=== PATIENT | female | born 1950 | race Caucasian/White ===

== ENCOUNTER → 2024-02-14 08:06 | Outpatient (REF) | payer MEDICARE, OTHER, SELFPAY | LOC: HWRAD 08:06 | PROVIDERS: ATTENDING PHYSICIAN Internal Medicine; REFERRING PHYSICIAN Internal Medicine Gastroenterology | DX: R60.9 Edema, unspecified (principal); K75.4 Autoimmune hepatitis; R10.9 Unspecified abdominal pain | CPT/HCPCS: 74176 ==

== ENCOUNTER → 2024-02-25 08:10 | Outpatient (REF) | payer MEDICARE, OTHER, SELFPAY | LOC: DHVS 08:10 | PROVIDERS: ATTENDING PHYSICIAN Surgery Vascular Surgery; FAMILY PHYSICIAN Internal Medicine | DX: I73.9 Peripheral vascular disease, unspecified (principal) | CPT/HCPCS: 93922; 93925 ==

== ENCOUNTER → 2025-05-01 10:00 | Outpatient (REF) | payer MEDICARE, OTHER, SELFPAY | LOC: RAD 10:00 | PROVIDERS: ATTENDING PHYSICIAN Internal Medicine Pulmonary Disease; FAMILY PHYSICIAN Internal Medicine | DX: J44.9 Chronic obstructive pulmonary disease, unspecified (principal) | CPT/HCPCS: 71250 ==

== ENCOUNTER → 2025-05-29 08:05 | Outpatient (REF) | payer MEDICARE, OTHER, SELFPAY | LOC: RAD 08:05 | PROVIDERS: ATTENDING PHYSICIAN Internal Medicine | DX: R51.9 Headache, unspecified (principal) | CPT/HCPCS: 70450 ==

== ENCOUNTER 2025-08-25 08:40 | Inpatient (IN) | payer MEDICARE, OTHER, SELFPAY ==
[2025-08-25] VITALS (49 sets, daily range): BP systolic 103–141; BP diastolic 57–111; BMI 16.1; BMI 16.3
[2025-08-25 07:15] LABS: Hematocrit 34.9 % (37.0-47.0); Hemoglobin 10.7 g/dL (12.0-16.0); Mean Corp Hgb Conc. 30.7 g/dL (33.0-37.0); Mean Corpuscular Volume 96.7 fL (81.0-99.0); Nucleated Red Blood Cells % 0 %; Platelet Count 272 10^3/uL (130-400); Red Cell Dist. Width 14.6 % (11.5-14.5)
--- NOTE | 2025-08-25 07:18 | ED TECH ---
A STEMI ALERT was called #[id number]# per @7:10 AM.
--- NOTE | 2025-08-25 07:28 | ED.GENMED ---
History of Present Illness
General
Chief Complaint: Breathing Problem
Time Seen by Provider: 08/25/25 07:09
History of Present Illness
History of Present Illness:
FOCUSED PAST MEDICAL HISTORY
- CHF, COPD related to lupus; patient denies CAD
REVIEW OF OLD RECORDS
- I reviewed old records�the patient was admitted with pelvic fracture 2020
Note:
CHIEF COMPLAINT(S)
Chest discomfort
HISTORY OF PRESENT ILLNESS
The patient is a 75-year-old female presenting with chest discomfort that began approximately 8 hours prior to arrival, around 11 PM last night. She describes the sensation as a pressure feeling, which she has not experienced before in this manner.
The patient reports a history of leg swelling recently and chronic purplish discoloration of the right foot over the past year, attributed to prior COVID-19 infection and vaccination. An examination revealed a slight wheeze on auscultation. The
patient denies any recent foot pain or abdominal pain but reports chronic foot pain. She appears somewhat uncomfortable during the examination.
MEDICATIONS
The patient is currently taking Entresto and Coreg. She is not on any anticoagulant medications such as apixaban (Eliquis).
REVIEW OF SYSTEMS
- Cardiovascular: Chest discomfort described as a pressure sensation, recent leg swelling.
- Respiratory: Wheeze present upon auscultation.
- Dermatological: Chronic purplish discoloration of the right foot.
PHYSICAL EXAM
General: Appears somewhat uncomfortable.
Skin: Purplish discoloration noted on the left greater than right feet, as described chronically by the patient. Unable to clearly palpate the left DP pulse
Respiratory: Scant wheeze on auscultation. Equally decreased breath sounds
Gastrointestinal: Abdomen is slightly prominent however it is soft and nontender
- HEENT: Moist oral mucosa
- Cardiovascular: No murmurs, normal heart rate, regular rhythm, No chest wall tenderness
- Neurologic: Excellent strength all extremities, no coordination deficits
- Psychiatric: Appropriate mental status, normal insight and judgement
- Extremities: Nontender, no edema, moves all extremities equally
PLAN
- Administered aspirin and Brilinta for chest discomfort.
- STEMI alert called�sent to Lead Assembler
DIFFERENTIAL DIAGNOSIS
The Differential Diagnosis includes, in no particular order and is not limited to:
1. Acute Coronary Syndrome
2. Congestive Heart Failure
3. Pulmonary Embolism
4. Aortic Dissection
5. Gastroesophageal Reflux Disease
6. Costochondritis
7. Anxiety or Panic Disorder
8. Chronic Obstructive Pulmonary Disease exacerbation
9. Peripheral Vascular Disease
10. COVID-19 related cardiac or pulmonary issues
Disposition:
SUMMARY OF ENCOUNTER
The patient, a 75-year-old female, presented to the emergency department with chest discomfort described as a pressure sensation, which began approximately 8 hours prior to arrival. An EKG was performed and was consistent with ST-Elevation
Myocardial Infarction (STEMI). As a result, discussions were held with an cutter woodwind reeds who agreed to proceed with cardiac catheterization.
EMERGENCY TREATMENTS ADMINISTERED
Aspirin and ticagrelor (Brilinta) were administered for antiplatelet therapy. The patient was also started on a heparin infusion and placed on a nitroglycerin drip to manage the chest pain.
MANAGEMENT OF THE PATIENTS CARE WAS DISCUSSED WITH
The case was discussed with an cutter woodwind reeds, who agreed on the need for urgent cardiac catheterization.
MEDICATION RECONCILIATION
- Aspirin administered
- Ticagrelor (Brilinta) administered
- Heparin infusion started
- Nitroglycerin drip started
MEDICAL DECISION MAKING
-Complexity of Data Reviewed: Chronic conditions affecting care, including recent leg swelling and prior COVID-19 history. Differential Diagnosis includes:
1. Acute Coronary Syndrome
2. Congestive Heart Failure
3. Pulmonary Embolism
4. Aortic Dissection
5. Gastroesophageal Reflux Disease
6. Costochondritis
7. Anxiety or Panic Disorder
8. Chronic Obstructive Pulmonary Disease exacerbation
9. Peripheral Vascular Disease
10. COVID-19 related cardiac or pulmonary issues
-Data:
Category 1
EKG was performed and independently interpreted, showing evidence of a STEMI.
Category 3
Discussion of management occurred with an cutter woodwind reeds, who agreed to take the patient to the clinical laboratory service teacher for further intervention.
DIAGNOSIS
1. ST-Elevation Myocardial Infarction (STEMI) - ICD-10: I21.3
RADIOLOGY
- Hyperinflated lungs, lack of lung markings in the periphery of the right consistent with apical pneumothorax
EKG
- Sinus 92 right bundle branch block is old but the ST elevation noted in V3 through V6 is new
LABS
- White count 3.5, hemoglobin 10.7, platelets normal, troponin 0.018 bicarb 14, BNP 7670
UPDATE
- Patient's EKG is concerning for STEMI with new ST elevation in V3 through V6
- Spoke to Dr. Granados who is taken to the Lead Assembler
- I ordered heparin, nitro, aspirin, Brilinta
- Chest x-ray obtained just prior to patient going upstairs and does suggest possibly of pneumothorax on the right side
- Attempted to contact radiology however they are not available yet
Past History
Past History
ED Past Medical History: CAD, Cancer (Breast, thyroid, ovarian), COPD (Emphysema), GERD, HTN, Hypercholesterolemia and Other (Lupus, Raynaud's)
ED Past Surgical History: Appendectomy, Gynecological (Hysterectomy) and Other (Partial thyroidectomy)
Social History
Tobacco: Former smoker
Living: with family
Phy Exam
Physical Exam
Physical Exam:
HPI
Scores
Heart Failure Risk
Heart Failure Risk Score: Not Applicable
Course
Orders/Labs/Results
Orders:
Orders
08/25/25 06:58
Electrocardiogram (*1) Urgent
Reason for Study: Other
Other Reason for Exam: Respiratory Distress
Cardiac Monitoring- Treatment ONCE
EKG- Treatment ONCE
IV Insert/Care/Rem.- Treatment PRN
O2 Therapy [RESP] Urgent
Titrate/Wean O2 to maintain O2 sat greater than (%): 93
Special Instructions: TO MAINTAIN CONTINUOUS O2 SATS >/= 93%
Pulse Ox/cont/shift [RESP] Urgent
Quantity: 1
Special Instructions: continuous pulse ox
08/25/25 07:09
Complete Blood Count/With Diff Urgent
Comprehensive Metabolic Panel Urgent
NT-proBNP Urgent
Troponin I Urgent
08/25/25 07:12
CR Chest Portable - 1 View Urgent
Comment:
Reason For Exam: STEMI
Reason Study Needs to be Portable: Unable to Transport
08/25/25 07:30
Nitroglycerin 100 mg/250 ml [Nitroglycerin Premix] 100 mg in 250 ml IV PER PROTOCOL
Initial dose in mcg/min, then titrate:: 10
Titrate to keep:: Chest Pain Free
Titrate by mcg/min:: 5 mcg/min, may increase by 10 mcg/min if dose > 20 mcg/min
Frequency of titrations (minutes):: every 3-5 minutes
Maximum dose in mcg/min:: 200
Begin to taper infusion when:: Remained at goal for 2hrs
Taper by mcg/min:: 5 mcg/min
Frequency of taper (minutes) if patient maintains goal:: 30
Taper to off?: Yes
If infusion off & no longer maintaining goal:: Contact Provider
08/25/25 07:47
Aspirin Chewable [Low Strength Aspirin] 324 mg .ROUTE .STK-MED ONE
Heparin 5,000 units .ROUTE .STK-MED ONE
Ticagrelor [Brilinta] 180 mg .ROUTE .STK-MED ONE
08/25/25 08:14
CXR Port [CR Chest Portable - 1 View] Stat
Comment:
Reason For Exam: pneumothorax
Reason Study Needs to be Portable: Unable to Transport
08/25/25 08:15
Admit Patient As Directed
Co-Sign Provider:
Level of Care: Inpatient admission
Assign to:: ICU
Physician / Group: hospitalist
Diagnosis: SOB
Reason for Hospitalization: SOB/Chest pain, possible PTX
Expected length of stay greater than two midnights?: Yes
ELOS- Estimated Length of Stay in days: 3
I certify the patient meets the requirements for IP care: Yes
Electrocardiogram (*1) Urgent
Reason for Study: Other
Other Reason for Exam: s/p intervention
Comment: dca
Activity As Directed
Activity Level: Out of Bed- Chair
Comment: bed/chair rest for 2 hours then out of bed ad momo
Lead Assembler Procedure As Directed
Cardiac Cath Procedure: percutaneous coronary intervention
Intake/ Output As Directed
Frequency: Per unit guidelines
Notify MD As Directed
Notify physician if: immediately for chest pain or bleeding from access site(s)
Radial Artery Hemostasis Method As Directed
Instructions:: 3 mL out at 2 hour posts placement of band
3 mL out at 2 1/2 hours post placement of band
3 mL out at 3 hours post placement of band
Off at 3 1/2 hours post placement of band
If any oozing or hemotoma occurs:: re-inflate band and call provider
Site Checks As Directed
Check access site for bleeding/hematoma: Yes
Comment: on arrival, Q15min x4, Q30min x2, Q1 hr x2, Q2 hr x2, Q4 hr or per
protocol
Vascular Checks As Directed
Location: distal to access site - pulse check
Frequency: Other
Comment: on arrival, Q15min x4, Q30min x2, Q1 hr x2, Q2 hr x2, Q4 hr or per protocol
Vital Signs As Directed
Frequency: Other
Additional Instructions:: on arrival, Q15min x4, Q30min x2, Q1 hr x2, Q2 hr x2, then Q4 hr or per unit
protocol
08/25/25 08:16
PRN Pain Medication Management As Directed
May give lesser potent ordered pain med per pt: Yes
preference::
Protocol:: Medication orders for pain may be administered in a
manner that supports deferring to patient preference
when the pt is:
- Requesting an ordered lesser potent pain medication.
Least to most potent pain medications are defined
as: acetaminophen < NSAID < tramadol < opioids
(morphine, oxycodone, hydromorphone).
- Requesting a lesser dose of the same medication IF
ORDERED.
- Requesting a less intrusive route of administration
if both routes are prescribed by the provider (PO <
IV).
08/25/25 08:19
DX Deep Vein Thrombosis Video Routine
08/25/25 08:20
Acetaminophen [Tylenol] 650 mg PO Q4HPRN PRN
08/25/25 08:23
High Flow Oxygen Therapy [O2 Therapy] [RESP] Urgent
High Flow Nasal Cannula FIO2%: 100
Titrate/Wean O2 to maintain O2 sat greater than (%): 95
Special Instructions: leave oxygen on until repeat CXR done, if no PTX ok to wean oxygen
08/25/25 Lunch
Cholesterol Lowering
At Your Request: Full Participation
Cholesterol Lowering: Sodium, 2 Gram
08/25/25 18:00
Atorvastatin [Lipitor] 40 mg PO QPM
08/25/25 20:00
Carvedilol [Coreg] 3.125 mg PO BID
08/26/25 06:00
Echo 2D MMode Color/Doppler IN AM
Reason for Study: post cath
Comment: dca
Echo 2D MMode Color/Doppler Routine
Reason for Study: OR
Comment: dca
Electrocardiogram (*1) IN AM
Reason for Study: Other
Other Reason for Exam: s/p intervention
Comment: dca
Basic Metabolic Panel IN AM
Cardiovascular Evaluation IN AM
Complete Blood Count/No Diff IN AM
08/26/25 08:00
Aspirin Chewable [Low Strength Aspirin] 81 mg PO DAILY
08/26/25 18:00
Enoxaparin Sodium [Lovenox] 30 mg SC QPM
Abnormal Lab Results
08/25/25 08/25/25
07:09 07:54
WBC 3.5 L 10^3/uL
(4.8-10.8)
RBC 3.61 L 10^6/uL
(4.20-5.40)
Hgb 10.7 L g/dL
(12.0-16.0)
Hct 34.9 L %
(37.0-47.0)
MCHC 30.7 L g/dL
(33.0-37.0)
RDW 14.6 H %
(11.5-14.5)
Absolute Lymphs (auto) 0.8 L 10^3/uL
(1.2-3.4)
Chloride 112 H mmol/L
(98-107)
Carbon Dioxide 14 L* mmol/L
(22-30)
BUN 27 H mg/dl
(7-17)
Glucose 114 H mg/dl
(70-99)
POC ACT Low Range 263 H Seconds
(116-155)
08/25/25 07:09
08/25/25 07:09
Vital Signs
Initial and Last Documented VS:
Initial Vital Signs
Temp Pulse Resp BP Pulse Ox
36.4 C 103 20 128/78 96
08/25/25 06:52 08/25/25 06:52 08/25/25 06:52 08/25/25 06:52 08/25/25 06:52
Last Documented Vital Signs
Temp Pulse Resp BP Pulse Ox
36.4 C 98 21 138/100 100
08/25/25 06:52 08/25/25 07:31 08/25/25 07:31 08/25/25 07:32 08/25/25 08:42
*Pulse Oximetry
SaO2: 96
Oxygen Mode of Delivery: Room air
Patient hypoxic: no
*Critical Care Note
Total Time (30-74mins, 75-104mins- exclusive of procedures): Not Applicable
ED Attending Note
-
Portions of this chart may have been created with voice recognition software.� Occasional wrong word or��sound alike� substitutions may have occurred due to the inherent limitations of voice recognition software.
Discharge Plan
Departure
Patient Disposition: Admit
Date of Disposition: 08/25/25
Time of Disposition: 07:27
Presentation/result/management discussed w/ accepting MD/DO: dr granados
Discharge Problem:
ST elevation (STEMI) myocardial infarction
Interventions
Interventions:
*General Assessment Last Done: 08/25/25 06:52
*Neglect/Abuse Screening Last Done: 08/25/25 06:52
*ED COVID-19 Vaccine History Last Done: 08/25/25 06:52
*ED Influenza Vaccine History Last Done: 08/25/25 06:52
[facility] Fall Risk Assessment Tool Last Done: 08/25/25 06:52
*Risk Screen - Suicide (C-SSRS) Last Done: 08/25/25 06:52
*Nursing Disposition Last Done: 08/25/25 07:50
ED- Cardiac Assessment Last Done: 08/25/25 07:51
ED- Pulmonary Assessment Last Done: 08/25/25 07:51
Discharge Date and Time
Discharge Date/Time: 08/25/25 07:52
[2025-08-25 07:39] LABS: ALT (SGPT) 26 U/L (0-35); AST (SGOT) 33 U/L (14-36); Albumin 4.3 g/dl (3.5-5.0); Alkaline Phosphatase 62 U/L (38-126); Blood Urea Nitrogen 27 mg/dl (7-17); Calcium 8.9 mg/dl (8.4-10.2); Carbon Dioxide 14 mmol/L (22-30); Chloride 112 mmol/L (98-107); Estimated Creatinine Clearance 37 ml/min; Glucose 114 mg/dl (70-99); Potassium 4.9 mmol/L (3.5-5.1); Sodium 139 mmol/L (135-145); Total Protein 6.8 g/dl (6.3-8.2); eGFR > 60.00
[2025-08-25 07:42] LABS: Troponin I 0.018 ng/ml
--- NOTE | 2025-08-25 07:59 | CON.CAR ---
Addendum entered and electronically signed by BECCA Tinajero 08/27/25 08:58:
Acute HFrEF treated with lasix during cath with elevated BNP
Addendum entered and electronically signed by Christie Longoria MD 08/25/25 15:08:
I saw and examined the patient.
The Superintendent Quarry's note was reviewed and I agree with the note.
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
followed by [facility]ology who presents with sudden onset shortness of breath and some chest discomfort starting around 11 PM last evening, eventually calling EMS around 5 or 6 in the morning found to have ST elevations in the lateral leads in
the setting of a right bundle branch block concerning for possible lateral HI for which the heart team was activated and patient was urgently brought up to the heart catheterization lab. There was some concern about a possible right apical
pneumothorax which we could not rule out however we had challenges getting a stat read from radiology and in the setting of ongoing chest discomfort/shortness of breath and ST changes decision was made to proceed with urgent heart catheterization
Vital signs and lab work reviewed. Patient was hemodynamically stable but tachycardic. On 2 L of oxygen. She was tachypneic, cachectic, frail at baseline, tachycardic, and mild respiratory distress, anxious, normal S1 and S2, no murmurs, rubs or
gallops, mildly elevated JVD, decreased breath sounds at bases, abdomen soft, nontender, nondistended with active bowel sounds, warm extremities without significant edema.
Heart catheterization: No obstructive coronary artery disease, LVEDP of 18 mmHg
Recommendations:
1. Post heart catheterization, extensive discussion was had with hospitalist as well as hardware installer given concerns for possible apical pneumothorax. Decision was made to support patient with 100% FiO2 via nonrebreather which we placed her on in
the Reverse Unit Operator itself. I expressed significant concerns in regards to patient going to the cath recovery area and instead we insisted on patient being transferred to an ICU bed with plan for repeat urgent portable x-ray. Upon discussion with
radiology, a large tension pneumothorax was noted on repeat imaging and while in the ICU patient underwent a emergent chest tube placement by hardware installer.
2. From a cardiac standpoint once patient is stable she will undergo an echocardiogram to assess biventricular function and rule out any significant valvular disease. We will try to obtain records from her sampler radioactive waste given concern/history of
what sounds like a nonischemic cardiomyopathy and additional workup has been underway per patient in regards to ruling out amyloid.
Updated in regards to all of the above.
Christie Longoria MD, [facility], [facility]
[id number]
Original Note:
Consultation
Consultation Request
Reason for Consultation: SOB
Medical History
-
Chief Complaint: SOB
History of Present Illness:
75 yo WF h/o SLE, COPD, HTN, HLD, Hypothyroidism, lacunar CVA, breast and ovarian cancer who developed SOB last night at 11pm with associated back pain. She took a shot of antonieta and fell asleep, this am she woke with worsening shortness of breath
and presented to ER. CXR done with possible Right PTX, EKG with some lateral NATALEE with RBBB and STEMI alert was activated. She was started on nitroglycerin drip, ASA, Brilinta and heparin given in ER. Cath with non obstructive CAD, will repeat CXR
and possibly place CT in IR if PTX. Her outpt cadiologist has been working her up for Amyloidosis for her cardiomyopathy with recent MRI, results unavailable.
Past Medical History
Past Medical History: Cancer (breast, ovarian), CHF (EF 35-40% by Echo 2023, mildly dilated AO), COPD (emphysema), CVA (lucunar), GERD (PUD), HTN, Hypercholesterolemia, Hypothyroidism, Valvular Disease and Other (SLE, cataracts, DVT/PE @38)
Past Surgical History: Appendectomy, Gynecological (IGNACIO, nilo oophorectomy, R mastectomy with breast implant ), Orthopedic (ORIF L) and Other (L thyroid lobectomy, hemicolectomy 2007, R mastectomy 2002)
Social History
Tobacco: Non-Smoker
Alcohol: None
Personal:
Living: With Family
Family History
Family History: Reviewed & Not Pertinent
Allergies / Home Medications
Allergy/AdvReac Type Severity Reaction Status Date / Time
pantoprazole (From Protonix) Allergy diarrhea Verified 08/25/25 06:51
Penicillins Allergy Rash Verified 08/25/25 06:51
Sulfa (Sulfonamide Allergy Hives Verified 08/25/25 06:51
Antibiotics)
florescent lights Allergy Rash Uncoded 08/25/25 06:51
normal saline solution Allergy excessive Uncoded 08/25/25 06:51
amts=fluid
over load.
smaller
amts ok
�Medication �Instructions �Recorded �Confirmed �Type
docusate sodium 100 mg capsule 200 mg PO HS Gastrointestinal issue 09/10/10 05/25/20 History
enalapril maleate 5 mg tablet 5 mg PO DAILY Blood pressure 09/10/10 05/25/20 History
esomeprazole magnesium 40 mg 20 mg PO BID Gastrointestinal issue 09/10/10 05/25/20 History
capsule,delayed release (Nexium)
fluticasone propionate 50 2 spray intranasal TID Allergies 09/10/10 05/25/20 History
mcg/actuation nasal
spray,suspension
loratadine-pseudoephedrine ER 10 1 ea PO DAILY Allergies 09/10/10 05/25/20 History
mg-240 mg tablet,extended
[id number] (Claritin-D 24 Hour)
polyethylene glycol 3350 17 17 gm PO BID Gastrointestinal issue 09/10/10 05/25/20 History
gram/dose oral powder
torsemide 20 mg tablet 20 mg PO DAILY Fluid 09/10/10 05/25/20 History
retention/Swelling
triamterene 50 mg capsule 50 mg PO DAILY Fluid 09/10/10 05/25/20 History
(Dyrenium) retention/Swelling
albuterol sulfate 90 mcg/actuation 2 puff inhalation R Q4HPRN PRN 05/25/20 05/25/20 History
aerosol inhaler wheezing
carboxymethylcellulose sodium 1 % 1 drops BOTH EYES TID Eye condition 05/25/20 05/25/20 History
eye gel in a dropperette
(TheraTears)
cholecalciferol (vitamin D3) 50 2,000 units PO DAILY Supplement 05/25/20 05/25/20 History
mcg (2,000 unit) tablet
cyanocobalamin (vitamin B-12) 1,000 mcg PO DAILY Supplement 05/25/20 05/25/20 History
1,000 mcg tablet
levothyroxine 100 mcg tablet 100 mcg PO DAILY Thyroid 05/25/20 05/25/20 History
liothyronine 5 mcg tablet (Cytomel) 5 mcg PO TID Thyroid 05/25/20 05/25/20 History
pyridoxine (vitamin B6) 100 mg 100 mg PO DAILY Supplement 05/25/20 05/25/20 History
tablet (Vitamin B-6)
triamcinolone acetonide 40 mg/mL 40 mg IJ Q2M Anti-inflammatory 05/25/20 05/25/20 History
suspension for injection (Kenalog)
umeclidinium 62.5 mcg-vilanterol 1 puff IH DAILYPRN PRN wheezing 05/25/20 05/25/20 History
25 mcg/actuation powdr for
inhalation (Anoro Ellipta)
vit C 250 mg-vit E 90 mg-zinc 40 1 ea PO BID Supplement 05/25/20 05/25/20 History
mg-copper 1 [id number]
capsule (PreserVision AREDS-2)
ascorbic acid (vitamin C) 250 mg 250 mg PO DAILY #30 tabs 05/27/20 Rx
tablet
aspirin 81 mg tablet,delayed 81 mg PO DAILY #30 tabs 05/27/20 Rx
release
atorvastatin 40 mg tablet 40 mg PO QPM #30 tabs 05/27/20 Rx
ferrous sulfate 325 mg (65 mg 325 mg PO DAILY #30 tabs 05/27/20 Rx
iron) tablet (FeroSul)
folic acid 400 mcg tablet 0.4 mg PO DAILY #30 tabs 05/27/20 Rx
oxycodone-acetaminophen 5 mg-325 2 tab PO QIDPRN PRN severe pain 05/28/20 Rx
mg tablet #10 tabs
potassium chloride 10 mEq 10 meq PO Supplement 05/28/20 History
tablet,extended release(part/cryst)
potassium chloride 20 mEq 20 BID Supplement 05/28/20 History
tablet,extended
release(part/cryst) (Klor-Con M)
Review of Systems
-
Respiratory: Cough and Trouble Breathing
Physical Exam
Vital Signs
Temp Pulse Resp BP Pulse Ox
97.6 F 98 21 138/100 96
08/25/25 06:52 08/25/25 07:31 08/25/25 07:31 08/25/25 07:32 08/25/25 07:38
Lab Results
08/25/25 07:09
08/25/25 07:09
Troponin I 0.018 ng/ml 08/25/25 07:09
[id number] Pept 7670 pg/ml 08/25/25 07:09
Physical Exam
General: Respiratory Distress (full exam deferred as being prepped and draped on cath table for emergent procedure)
Respiratory: Wheezes
Impression / Plan
-
Primary care physician: Marie Ruby MD
Primary sampler radioactive waste: Jorge Christian MD ([facility] [place])
Impression:
Shortness of breath
Right Pneumothorax on CXR
Lateral ST elevations on EKG, urgent cath today with non obstructive CAD
RBBB
chronic HFrEF 35-40%, undergoing w/u for Amyloid
SLE
COPD/Emphysema
HTN
Hyperlipidemia
Mild AR/TR and mildly dilated Aortic ascending aorta
Lacunar CVA
Breast cancer post R mastectomy 2002
Ovarian cancer post IGNACIO, nilo oophorectomy
Estephania thyroiditis post L thyroid lobectomy
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
GERD/PUD
IBS-C
underweight BMI 16
Plan:
presented to ER with worsening SOB/cough and scapular pain, EKG with lateral NATALEE, STEMI alert activated
CXR prior to arrival with PTX, official read was pending
cath with non obstructive CAD, admitted to ICU for repeat CXR, noted with Right tension PTX
CT being placed at bedside by Filer Helper, continue high flow oxygen
LVEDP not severely elevated at 18, she was given lasix 40mg iv during procedure for BNP >7000
monitor cr post cath, and electrolytes to keep K >4 and Mg >2
Check Echo today
serial troponin to peak
continue ASA/statin
wean nitro drip to off for BP management
CT management per primary service
f/u Dr. Christian in 2-4 weeks
06/09/2024 ECHO - LVEF 35-40%, moderate global HK, mild LA enlargement, Mild AR/TR, mildly dilated AAo 3.6cm
06/12/2024 NST - EF 44%, no ischemia, mild diffuse HK
Data Reviewed
-
Medical Tests (Nuc Med, Echo etc): Report Reviewed by me
Labs: Discussed with Physician
[2025-08-25 08:02] LABS: ACT-LR - POC 263 Seconds (116-155)
--- NOTE | 2025-08-25 08:47 | CON.INTV ---
Consultation
Consultation Request
Date/Time Consultation Requested: 08/25/2025
Date/Time Consultation Performed: 08/25/2025
Medical History
-
Chief Complaint: Chest pressure, shortness of breath
History of Present Illness:
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 Symptoms started about 7 to 8 hours prior to
presentation where she felt rather rapid onset of back pain with chest pressure and difficulty breathing. She tried to fall asleep and then woke up in the morning with worsening shortness of breath and presented to the emergency room. Initial EKG
was suggestive of ST elevation and patient was taken to Technical Assistant where no coronary artery disease was noted. Initial chest x-ray was concerning for possible pneumothorax however interpretation was limited by multiple lines, patient rotation as well
as ruptured breast implant noted on the right side. Post coronary angiogram, patient was transferred to ICU for concern of pneumothorax as underlying etiology for shortness of breath and chest pain. Medical Assistant Dermatology consultation was requested for
further input.
Patient was emergently evaluated in the ICU as soon as she arrived. A stat bedside [id number] ultrasound was performed which showed absence of lung sliding on the right hemithorax in the anterior and lateral region. Repeat chest x-ray was
performed which confirmed pneumothorax suggestive of tension physiology. A bedside chest tube was emergently placed with rapid improvement in patient's symptoms.
Past Medical History
Past Medical History: Cancer (breast, ovarian), CHF (EF 35-40% by Echo 2023, mildly dilated AO), COPD (emphysema), CVA (lucunar), GERD (PUD), HTN, Hypercholesterolemia, Hypothyroidism, Valvular Disease and Other (SLE, cataracts, DVT/PE @38)
Past Surgical History: Appendectomy, Gynecological (IGNACIO, nilo oophorectomy, R mastectomy with breast implant ), Orthopedic (ORIF L) and Other (L thyroid lobectomy, hemicolectomy 2007, R mastectomy 2002)
Social History
Tobacco: Non-Smoker
Alcohol: None
Personal:
Living: With Family
Family History
Family History: Reviewed & Not Pertinent
Allergies / Home Medications
Allergies
Allergy/AdvReac Type Severity Reaction Status Date / Time
pantoprazole (From Protonix) Allergy diarrhea Verified 08/25/25 06:51
Penicillins Allergy Rash Verified 08/25/25 06:51
Sulfa (Sulfonamide Allergy Hives Verified 08/25/25 06:51
Antibiotics)
florescent lights Allergy Rash Uncoded 08/25/25 06:51
normal saline solution Allergy excessive Uncoded 08/25/25 06:51
amts=fluid
over load.
smaller
amts ok
Home Medications
�Medication �Instructions �Recorded �Confirmed �Last Taken �Type
docusate sodium 100 mg capsule 200 mg PO HS Gastrointestinal issue 09/10/10 05/25/20 05/24/20 History
enalapril maleate 5 mg tablet 5 mg PO DAILY Blood pressure 09/10/10 05/25/20 05/25/20 History
esomeprazole magnesium 40 mg 20 mg PO BID Gastrointestinal issue 09/10/10 05/25/20 05/25/20 History
capsule,delayed release (Nexium)
fluticasone propionate 50 2 spray intranasal TID Allergies 09/10/10 05/25/20 05/24/20 History
mcg/actuation nasal
spray,suspension
loratadine-pseudoephedrine ER 10 1 ea PO DAILY Allergies 09/10/10 05/25/20 05/25/20 History
mg-240 mg tablet,extended
[id number] (Claritin-D 24 Hour)
polyethylene glycol 3350 17 17 gm PO BID Gastrointestinal issue 09/10/10 05/25/20 05/25/20 History
gram/dose oral powder
torsemide 20 mg tablet 20 mg PO DAILY Fluid 09/10/10 05/25/20 05/25/20 History
retention/Swelling
triamterene 50 mg capsule 50 mg PO DAILY Fluid 09/10/10 05/25/20 05/25/20 History
(Dyrenium) retention/Swelling
albuterol sulfate 90 mcg/actuation 2 puff inhalation R Q4HPRN PRN 05/25/20 05/25/20 Unknown History
aerosol inhaler wheezing
carboxymethylcellulose sodium 1 % 1 drops BOTH EYES TID Eye condition 05/25/20 05/25/20 05/24/20 History
eye gel in a dropperette
(TheraTears)
cholecalciferol (vitamin D3) 50 2,000 units PO DAILY Supplement 05/25/20 05/25/20 05/25/20 History
mcg (2,000 unit) tablet
cyanocobalamin (vitamin B-12) 1,000 mcg PO DAILY Supplement 05/25/20 05/25/20 05/25/20 History
1,000 mcg tablet
levothyroxine 100 mcg tablet 100 mcg PO DAILY Thyroid 05/25/20 05/25/20 05/25/20 History
liothyronine 5 mcg tablet (Cytomel) 5 mcg PO TID Thyroid 05/25/20 05/25/20 05/25/20 History
pyridoxine (vitamin B6) 100 mg 100 mg PO DAILY Supplement 05/25/20 05/25/20 05/25/20 History
tablet (Vitamin B-6)
triamcinolone acetonide 40 mg/mL 40 mg IJ Q2M Anti-inflammatory 05/25/20 05/25/20 Unknown History
suspension for injection (Kenalog)
umeclidinium 62.5 mcg-vilanterol 1 puff IH DAILYPRN PRN wheezing 05/25/20 05/25/20 05/23/20 History
25 mcg/actuation powdr for
inhalation (Anoro Ellipta)
vit C 250 mg-vit E 90 mg-zinc 40 1 ea PO BID Supplement 05/25/20 05/25/20 05/25/20 History
mg-copper 1 hr-zerfhg-ttmarj
capsule (PreserVision AREDS-2)
ascorbic acid (vitamin C) 250 mg 250 mg PO DAILY #30 tabs 05/27/20 Unknown Rx
tablet
aspirin 81 mg tablet,delayed 81 mg PO DAILY #30 tabs 05/27/20 Unknown Rx
release
atorvastatin 40 mg tablet 40 mg PO QPM #30 tabs 05/27/20 Unknown Rx
ferrous sulfate 325 mg (65 mg 325 mg PO DAILY #30 tabs 05/27/20 Unknown Rx
iron) tablet (FeroSul)
folic acid 400 mcg tablet 0.4 mg PO DAILY #30 tabs 05/27/20 Unknown Rx
oxycodone-acetaminophen 5 mg-325 2 tab PO QIDPRN PRN severe pain 05/28/20 Unknown Rx
mg tablet #10 tabs
potassium chloride 10 mEq 10 meq PO Supplement 05/28/20 05/26/20 History
tablet,extended release(part/cryst)
potassium chloride 20 mEq 20 BID Supplement 05/28/20 05/26/20 History
tablet,extended
release(part/cryst) (Klor-Con M)
Review of Systems
-
Hematologic/Lymphatic: Other (All 14 systems reviewed and negative except as stated above in the history of present illness.)
Vitals / Labs / Diagnostic Testing
Vital Signs
Temp Pulse Resp BP Pulse Ox
97.6 F 98 21 138/100 100
08/25/25 06:52 08/25/25 07:31 08/25/25 07:31 08/25/25 07:32 08/25/25 08:42
Lab Data
08/25/25 07:09
08/25/25 07:09
Diagnostic Testing:
Physical Exam
-
HEENT: Normocephalic
Cardiovascular: S1/S2
Respiratory: Other (Significantly decreased air entry on the right side)
GI: Soft and Non Distended
Neurology: Awake and Alert
Skin: Warm
General: Comfortable
Assessment
-
#1. Spontaneous tension pneumothorax, right side with respiratory distress
- Emergent bedside placement of chest tube with resolution of pneumothorax
- Not volume air noted in the atrium, rapid resolution of symptoms of dyspnea and chest pain
- Continue chest tube to suction
- Follow-up chest x-ray in a.m.
- Reported prior history of COPD. CT scan reviewed from earlier this year, no bullous changes noted.
#2. Chest pain with concern for ST elevation DC
- Patient had evidence of ST elevation on EKG and was taken to Technical Assistant emergently
- No evidence of coronary artery disease
- Suspect symptoms primarily related to tension pneumothorax, chest pain resolved post chest tube placement
- Reported local discomfort at the site of chest tube insertion, will treat with as needed Toradol
#3. H/o COPD
- Reports obstructive airway disease related to lupus, no prior history of smoking, no PFTs available for review
- At baseline patient uses Anoro daily and as needed albuterol
#4. H/o HFrEF
- Currently appears euvolemic, presentation not suggestive of heart failure exacerbation
- Cardiology service on case
Other medical diagnoses:
- History of SLE
- Hypertension, hyperlipidemia
- Hypothyroidism
- History of lacunar CVA
- History of breast and ovarian cancer
- History of ruptured breast implant on the right side
- GERD
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
Critical Care time 65 mins -- The patient is admitted for acute critical illness for the treatment of vital organ failure and/or prevention of further life-threatening conditions. Total care includes time spent in review of history, physical exam,
medications, hemodynamic/ventilator parameters, laboratory data, imaging and discussion with house staff, pharmacy, respiratory therapy, transit mechanic, and nursing.
Data:
CXR 08/2025: Essentially stable large tension right pneumothorax, findings noted by the Plastic Tile Layer in the ICU.
LHC 08/2025: 1. No obstructive coronary artery disease.
2. LVEDP of [address] Chest 04/2025: No acute findings in the chest. Stable chronic findings as detailed above.
Postoperative changes of right mastectomy with implant reconstruction. There is rupture of the implant which is new from prior examination in 2021.
Moderate coronary artery calcifications.
--- NOTE | 2025-08-25 09:02 | ITS.CL.CATH ---
Aviation Safety Equipment Technician - Catheterization
Cardiac Catheterization
Procedure Report:
LEFT HEART CATHETERIZATION
Date of Procedure: August 25, 2025
Referring: [facility]
PROCEDURES:
1. Left heart catheterization, coronary angiogram.
2. Moderate sedation.
INDICATION: Ayleen is a 75-year-old female with significant past medical history who presented with sudden onset shortness of breath as well as chest discomfort since last night finally calling EMS around 6 in the morning with EKG in the emergency
room at 7:03 AM showing concern for possible ST elevations in the lateral reads in the setting of a right bundle branch block and otherwise sinus rhythm. Given ongoing chest discomfort the heart catheterization team was emergently activated and
after reviewing detailed informed consent reviewing the risk and benefits patient was brought up to the heart catheterization lab to proceed with emergent heart catheterization. Of note there was concern brought up about a possible right apical
pneumothorax on chest x-ray however despite multiple attempts from both the emergency medicine staff and myself we could not get a hold of a radiologist to confirm this. Given significant EKG changes, decision was made to proceed with emergent
heart catheterization to rule out obstructive CAD. Patient had received 325 mg of aspirin, 180 mg of Brilinta and 2800 units of IV unfractionated heparin in the emergency room
ACCESS: Right radial artery, 6Fr. sheath, under US guidance.
HEMODYNAMICS : (mmHg)
AO (s/d) : 127/84
LVEDP : 18
No significant gradient across the aortic valve to suggest aortic stenosis.
CORONARY FINDINGS
Dominance: Right
Left Main Trunk (LMT): Large caliber vessel that gives rise to the LAD and LCx branches and is free of angiographic disease.
Left Anterior Descending Artery (LAD): Large caliber vessel that gives off 2 major diagonal branches as it courses along the anterior inter-ventricular groove before wrapping around the cardiac apex. There is mild diffuse atherosclerotic plaque.
Left Circumflex Artery (LCx): Large caliber vessel that gives off 1 major obtuse marginal (OM) branch as it courses along the atrio-ventricular (AV) groove. There is mild diffuse atherosclerotic plaque.
Right Coronary Artery (RCA): Small caliber dominant vessel with a high anterior takeoff nonselectively engaged using a 5 Wolof JR4 diagnostic catheter with no high-grade lesions.
SEDATION: 17 minutes of procedural sedation was utilized. IV Midazolam and IV Fentanyl were administered. An independent medical imaging technician was present to assist with and help manage the patient's level of consciousness and physiologic status.
Closure Device: There were no immediate intra-procedural complications. The sheath was pulled in the central lab technician and a vascular-band applied to the right wrist for radial artery hemostasis using the patent hemostasis technique.
CONCLUSIONS
1. No obstructive coronary artery disease.
2. LVEDP of 18 mmHg
RECOMMENDATIONS
1. Wean radial band per protocol. Monitor right hand perfusion and for bleeding from the radial site following removal of the vascular-band following trans-radial access.
2. Continue aggressive medical therapy and risk factor modification for secondary CAD prevention.
3. Hydrate with normal saline to mitigate the risk of contrast-induced acute kidney injury.
4. Given concern on chest x-ray of a right apical pneumothorax, patient will be admitted under hospitalist service to the ICU with records specialist also involved for repeat imaging and consideration for interventional radiology consult if pneumothorax
is confirmed.
5. Full echocardiogram to assess biventricular function and rule out any significant valvular abnormalities
Christie Longoria MD, FACC, [facility] [place]
--- NOTE | 2025-08-25 09:49 | PTCARENOTE ---
Rec'd patient from labeling machine operator. AAOx3. MAEx4. NSR, 80's. Right radial artery site and neurovascular checks as ordered. Ecchymotic under band. C/o some pressure in chest and sob. Tachypneic. Lung sounds diminished throughout right lung. Occasional
non-productive cough. CXR completed. Brazer Helper Induction at bedside to place right chest tube. Chest tube placed to wall suction. Air leak upon placement; resolved. Patient's skin thin and fragile. Skin tear on right upper chest from sterile dressing.
Sutures placed by Brazer Helper Induction. Repeat cxr completed. Pulse ox 99-100% on RA. Dyspnea improved.
--- NOTE | 2025-08-25 10:09 | OR.RPT ---
Operative Report
Operative Report
Chest tube placement, Right side
Indication. Emergent procedure for tension pneumothorax
Consent: Verbal consent obtained from the patient
Procedure: Patient was placed in semirecumbent position. Irbwv-sj-zqyx ultrasound was used to confirm absence of lung sliding in the right hemithorax. Anterior lateral chest, in the triangle of safety, fourth intercostal space was picked based on
absence of underlying lung sliding for pleural access. After area was cleaned and draped, sternal precautions were used and 1 mL of local lidocaine was injected under the skin. Once area was numbed, needle was advanced under suction until air was
aspirated, additional lidocaine was injected around the pleural space and on the way back in the tract. A 4 mm skin aracelis was placed in the area. 8 Jordanian pneumothorax drainage catheter was advanced under suction. Once air was aspirated, needle
was held still and catheter was advanced into the pleural space. Needle was subsequently withdrawn and catheter was connected to suction tubing. Large volume of air bubbles were immediately noted in the atrium. This was followed by improvement in
patient's respiratory status and resolution of chest pain. A suture was placed around the chest tube site and an occlusive dressing was placed on top.
Time spent: 30 min
Complications: None. Follow-up chest x-ray showed chest tube in appropriate position with resolution of pneumothorax.
Date of procedure: 08/25/2025
Addendum: Small accidental skin aracelis was made with the scalpel while removing the draping and removing the equipment. About 1 cm skin laceration superficial noted. Area was cleaned, local lidocaine was injected and 2 sutures were placed. Local
pressure was held until bleeding was stopped and then occlusive dressing was placed. Patient was informed regarding the accidental nicking of a small area of skin close to chest tube entry site.
--- NOTE | 2025-08-25 10:16 | HPS.HSE ---
Family Physician
-
Family Physician: Marie Ruby
Chief Complaint
-
Back pain and shortness of breath
History of Present Illness
Patient is a 75 years old female with history of SLE, pleurisy who presents to the emergency room with acute onset of back pain and shortness of breath. With further evaluation in the emergency room including ECG with ST elevation in lateral leads
there was a concern for STEMI patient was sent to the Cath. Catheterization revealed nonobstructive CAD. Additional lesion was chest x-ray patient was found to have a tension pneumothorax. She was transferred to ICU and received emergent right
chest tube. Follow-up chest x-ray with resolution of pneumothorax.
Medical History
Past Medical History
Past Medical History: Reports Hypothyroidism (Estephania thyroiditis); Denies CAD, CHF or IDDM
Additional Past Medical History:
SLE with history of pleural ascites. COPD.
Alpha-1 antitrypsin deficiency
Mitral valve prolapse
Essential hypertension
Chronic anemia
Past Surgical History: Reports Other (Lung carcinoma status post right mastectomy, appendectomy. Right hemicolectomy. IGNACIO/BSO)
Social History
Tobacco: Former Smoker
Alcohol: None
Drug: None
Personal:
Living: With Family
Employment: Not Employed
Family History
Family History: Not pertinent
Allergies / Home Medications
Allergies reflects when Allergies were last updated in [employer].
Home Medications with original date entered in [employer]
Allergy/Medication List:
Pending reconciliation
Review of Systems
-
A 12 point ROS was completed and negative except as noted: Yes
Respiratory: Reports See HPI
Cardiac: Reports See HPI
Physical Exam
Vital Signs
Vital Signs
Temp Pulse Resp BP Pulse Ox
97.6 F 98 21 138/100 100
08/25/25 06:52 08/25/25 07:31 08/25/25 07:31 08/25/25 07:32 08/25/25 08:42
Physical Exam
General: Well Developed, Well Nourished and No Apparent Distress
HEENT: NormoCephalic, Moist mucous membranes and Atraumatic
Respiratory: Clear and Chest Tube (Right chest tube with no airleak)
Cardiac: S1/S2 and Regular Rhythm; No Murmur or Rub
GI: Soft, Non Tender, Non Distended and Normal Bowel Sounds; No Organomegaly
Rectal: Deferred by Provider
Musculoskeletal: No Clubbing, No Cyanosis and No Edema
Skin: No Rash
Neuro: Nonfocal/grossly intact
Laboratory Results
-
08/25/25 07:09
Laboratory Results
Total Bilirubin 0.4 mg/dl (0.2-1.3) 08/25/25 07:09
AST 33 U/L (14-36) 08/25/25 07:09
ALT 26 U/L (0-35) 08/25/25 07:09
Alkaline Phosphatase 62 U/L (38-126) 08/25/25 07:09
Troponin I 0.018 ng/ml 08/25/25 07:09
Impression/Plan
-
IMPRESSION:
Right tension pneumothorax
Concern for acute coronary syndrome/STEMI ruled out
Elevated anion gap metabolic acidosis
Elevated pro CHF BNP
Conditions prior to admission
SLE with pleurisy
Alpha antitrypsin deficiency
Chronic CHF preserved EF
Emphysema
Hypothyroidism/Estephania thyroiditis
Chronic normocytic anemia
Essential hypertension
Breast carcinoma
Surgical history including appendectomy, right hemicolectomy, IGNACIO/BSO, right mastectomy
Severe protein calorie malnutrition with BMI of 16
PLAN:
Right tension pneumothorax.
Admitted to intensive care unit.
Emergent right chest tube placed with no airleak and follow-up chest x-ray with complete resolution.
Complete chest tube with follow-up imaging. If remains with no airleak plan is to clamp it over the next 24 to 48 hours.
Would benefit from additional imaging with CT chest when reasonable.
Discussed with pulmonary/atg architect
Concern for acute coronary syndrome/STEMI
Admission ECG with ST elevation in lateral lead.
Initiated on IV heparin and Brilinta
Cardiac catheterization with nonobstructive CAD
Plan is to continue aspirin and atorvastatin.
Noted with elevated pro CHF BNP, although no evidence of volume overload.
Echocardiogram pending
Repeat EKG post chest tube placement pending
Chronic CHF preserved EF
Essential hypertension
Preadmission regimen including Coreg, Entresto, spironolactone, torsemide.
Continue Coreg
Hold Entresto, spironolactone and torsemide postcontrast exposure monitoring hemodynamics and volume status closely.
Lupus with pleurisy
Currently not on any anti-inflammatory regimen
Reports receiving intra-articular injection with steroids.
Hypothyroidism on replacement.
[2025-08-25 10:17] LABS: Glucose - Point of Care 121 mg/dl (70-99)
[2025-08-25 11:44] LABS: INR 1.26; PT 15.6 Sec (11.4-14.6)
[2025-08-25 11:46] LABS: APTT 82.4 Sec (23.4-35.0)
[2025-08-25] MEDS: TORADOL 15 MG IV (12:55)
[2025-08-25 13:31] LABS: Blood Urea Nitrogen 26 mg/dl (7-17); Calcium 9.1 mg/dl (8.4-10.2); Carbon Dioxide 12 mmol/L (22-30); Chloride 112 mmol/L (98-107); Estimated Creatinine Clearance 38 ml/min; Glucose 93 mg/dl (70-99); Potassium 4.4 mmol/L (3.5-5.1); Sodium 139 mmol/L (135-145); eGFR > 60.00
--- NOTE | 2025-08-25 14:45 | PTCARENOTE ---
Addendum entered by Elisabeth Vazquez RN 08/25/25 14:48:
Orders for CMP, lactic and VBG placed.
Original Note:
Pain at chest tube insertion site remains 8/10 s/p Toradol. Right upper chest site dressing saturated again. Rouge Mixer notified. 1x dose of Dilaudid placed. Rouge Mixer coming to bedside to reassess site.
[2025-08-25 14:50] LABS: Troponin I 0.042 ng/ml
[2025-08-25] MEDS: DILAUDID 0.25 MG IV ×2 (14:55→21:46)
[2025-08-25 15:17] LABS: Venous Blood Gas B.E. -5.8 mmol/L (-4 to +4); Venous Blood Gas O2 Sat % 90.7 %
--- NOTE | 2025-08-25 15:26 | CM ---
I.A: Completed By NICHO Clark.
Patient Lives with her in a [address] with 1 NATALEE and 1 STI. DME: None
PCP: Dr. Marie Ruby
Pharm: [facility]
Patient has transport home when ready. PLAN: Anticipate Home No Needs.
[2025-08-25 15:36] LABS: ALT (SGPT) 27 U/L (0-35); AST (SGOT) 31 U/L (14-36); Albumin 4.1 g/dl (3.5-5.0); Alkaline Phosphatase 72 U/L (38-126); Blood Urea Nitrogen 31 mg/dl (7-17); Calcium 9.2 mg/dl (8.4-10.2); Carbon Dioxide 17 mmol/L (22-30); Chloride 111 mmol/L (98-107); Estimated Creatinine Clearance 33 ml/min; Glucose 101 mg/dl (70-99); Potassium 4.5 mmol/L (3.5-5.1); Sodium 137 mmol/L (135-145); Total Protein 6.6 g/dl (6.3-8.2); eGFR > 60.00
--- NOTE | 2025-08-25 16:00 | PTCARENOTE ---
Systems reviewed. Pain better controlled after receiving 1x dose of Dilaudid. VSS. Right chest tube remains to wall suction. Lung sounds diminished. Pulse ox 98% on RA. Denies dyspnea. NSR, rate in the 70-80's. External pressure device removed from
right radial artery per protocol. Voiding via bedpan. No other changes. Right chest site assessed by Supervisor Evaporator. RN advised to leave dressing and allow time for clot formation.
[2025-08-25] MEDS: LIPITOR 40 MG PO (17:15)
[2025-08-25] MEDS: PREVACID 15 MG PO (17:15)
[2025-08-25] MEDS: ROXICODONE 10 MG PO ×2 (17:58→23:13)
--- NOTE | 2025-08-25 18:00 | PTCARENOTE ---
Bleeding increased from right chest laceration site. Digital Community Manager at bedside to redress. Small amount of bleeding from top of incision. Steri strips, surgicel, 4x4 and tegaderm applied.
--- NOTE | 2025-08-25 21:31 | PTCARENOTE ---
on assessment pt AAOx3, SR on the monitor, denies chest pain and SOB at this time, R chest wound saturated dressing, POWER PLANT MECHANIC made aware and pressure dressing placed, pt tolerated well, pt uses bedpan, R chest tube c/d/i, call ascencio in reach
[2025-08-25] MEDS: COREG 3.125 MG PO (21:45)
[2025-08-25] MEDS: MIRALAX 17 GRAMS PO (21:45)
[2025-08-26] VITALS (30 sets, daily range): BP systolic 106–136; BP diastolic 58–101; BMI 15.6
--- NOTE | 2025-08-26 | PTCARENOTE ---
drainage noted on new pressure dressing, CLINICAL TRIALS DATA COORDINATOR made aware, will continue to monitor, PRN pains meds given see MAR
[2025-08-26 00:50] LABS: Troponin I 0.124 ng/ml
[2025-08-26] MEDS: DILAUDID 0.25 MG IV (03:29)
[2025-08-26 04:24] LABS: Hematocrit 30.9 % (37.0-47.0); Hemoglobin 9.6 g/dL (12.0-16.0); Mean Corp Hgb Conc. 31.1 g/dL (33.0-37.0); Mean Corpuscular Volume 94.2 fL (81.0-99.0); Nucleated Red Blood Cells % 0 %; Platelet Count 253 10^3/uL (130-400); Red Cell Dist. Width 14.8 % (11.5-14.5)
[2025-08-26 04:48] LABS: Blood Urea Nitrogen 39 mg/dl (7-17); Calcium 8.9 mg/dl (8.4-10.2); Carbon Dioxide 18 mmol/L (22-30); Chloride 108 mmol/L (98-107); Estimated Creatinine Clearance 33 ml/min; Glucose 102 mg/dl (70-99); HDL Cholesterol 75 mg/dl; LDL Cholesterol, Calculated 75 mg/dl; Potassium 4.6 mmol/L (3.5-5.1); Sodium 134 mmol/L (135-145); Very Low Density Lipoprotein 27 mg/dl (0-30); eGFR > 60.00
[2025-08-26 05:00] LABS: Troponin I 0.113 ng/ml
[2025-08-26] MEDS: SYNTHROID 88 MCG PO (05:10)
--- NOTE | 2025-08-26 05:34 | PTCARENOTE ---
R chest wound pressure dressing reinforced, pt unable to void on bedpan, pt bladder scanned for 480ml and st cathed for 500ml, belly remains round/distended bvut soft and non tender, LAMP DEVELOPER made aware
[2025-08-26] MEDS: SENOKOT 17.2 MG PO ×2 (08:37→20:03)
[2025-08-26] MEDS: ROXICODONE 10 MG PO ×2 (08:37→19:19)
[2025-08-26] MEDS: COREG 3.125 MG PO ×2 (08:38→20:04)
[2025-08-26] MEDS: PREVACID 15 MG PO ×2 (08:44→15:59)
[2025-08-26] MEDS: COLACE 100 MG PO ×2 (08:44→20:04)
--- NOTE | 2025-08-26 09:00 | PTCARENOTE ---
Rec'd care of patient at 0700. AAOx3. UPPER [place]. MAEx4. NSR with BBB, pacs. Repeat EKG obtained per MD order. Auto Job Estimator at bedside to clamp chest tube at 0745. Repeat cxr ordered for 1200. Pulse ox 98-99% on RA. Lung sounds diminished throughout.
Occasional dry, non-productive cough. Hyper BS. Appetite good. Voiding via bedpan. Right upper chest laceration dressing saturated. Pressure held by Auto Job Estimator and redressed.
--- NOTE | 2025-08-26 10:42 | W.PN.INTV ---
Today's Communication / Plan
Recommendations
- Clamp chest tube, f/u CXR in 4 hours.
- Stable for downgrade to IMU
- Pulmonary team will continue to follow along.
Assessment
-
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 Symptoms started about 7 to 8 hours prior to
presentation where she felt rather rapid onset of back pain with chest pressure and difficulty breathing. She tried to fall asleep and then woke up in the morning with worsening shortness of breath and presented to the emergency room. Initial EKG
was suggestive of ST elevation and patient was taken to Residential Program Worker where no coronary artery disease was noted. Initial chest x-ray was concerning for possible pneumothorax however interpretation was limited by multiple lines, patient rotation as well
as ruptured breast implant noted on the right side. Post coronary angiogram, patient was transferred to ICU for concern of pneumothorax as underlying etiology for shortness of breath and chest pain. Multi Operation Forming Machine Setter consultation was requested for
further input.
Patient was emergently evaluated in the ICU as soon as she arrived. A stat bedside [id number] ultrasound was performed which showed absence of lung sliding on the right hemithorax in the anterior and lateral region. Repeat chest x-ray was
performed which confirmed pneumothorax suggestive of tension physiology. A bedside chest tube was emergently placed with rapid improvement in patient's symptoms.
#1. Spontaneous tension pneumothorax, right side with respiratory distress
- Emergent bedside placement of chest tube (08/25) with resolution of pneumothorax
- 08/26, no airleak noted this morning. Follow-up chest x-ray stable. Clamp tube and get a follow-up x-ray in 4 hours.
- Reported prior history of COPD. CT scan reviewed from earlier this year, no bullous changes noted.
#2. Chest pain with concern for ST elevation [place]
- Patient had evidence of ST elevation on EKG and was taken to Residential Program Worker emergently
- No evidence of coronary artery disease
- Suspect symptoms primarily related to tension pneumothorax, chest pain resolved post chest tube placement
- Hold ASA in view of oozing from skin laceration/tear site
#3. H/o COPD
- Reports obstructive airway disease related to lupus, no prior history of smoking, no PFTs available for review
- At baseline patient uses Anoro daily and as needed albuterol
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
#4. H/o HFrEF
- Currently appears euvolemic, presentation not suggestive of heart failure exacerbation
- Cardiology service on case
Other medical diagnoses:
- History of SLE
- Hypertension, hyperlipidemia
- Hypothyroidism
- History of lacunar CVA
- History of breast and ovarian cancer
- History of ruptured breast implant on the right side
- GERD
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
Critical Care time 45 mins -- The patient is admitted for acute critical illness for the treatment of vital organ failure and/or prevention of further life-threatening conditions. Total care includes time spent in review of history, physical exam,
medications, hemodynamic/ventilator parameters, laboratory data, imaging and discussion with house staff, pharmacy, respiratory therapy, flight operations inspector, and nursing.
Data:
CXR 08/2025: Essentially stable large tension right pneumothorax, findings noted by the Product Development Intern in the ICU.
LHC 08/2025: 1. No obstructive coronary artery disease.
2. LVEDP of [address] Chest 04/2025: No acute findings in the chest. Stable chronic findings as detailed above.
Postoperative changes of right mastectomy with implant reconstruction. There is rupture of the implant which is new from prior examination in 2021.
Moderate coronary artery calcifications.
Subjective Dataa
Subjective Data
Date of Service:
Date of Service: August 26, 2025
Subjective:
Patient comfortably lying in bed in no acute distress.
Review of Systems
Genitourinary: Other (All 14 systems reviewed and negative except as stated above in the history of present illness.)
Objective Data
Data Reviewed
Vital Signs / I&O / Oxygen:
Vital Signs
Temp Pulse Resp BP Pulse Ox
97.9 F 88 21 129/70 99
08/26/25 08:00 08/26/25 10:00 08/26/25 10:00 08/26/25 10:00 08/26/25 09:00
Intake and Output
08/25/25 08/26/25 08/27/25
06:59 06:59 06:59
Intake Total 480 / 480
Output Total 500 / 500
Balance -20 / -20
SaO2 99
Physical Exam
General: Comfortable
HEENT: Normocephalic
Cardiovascular: S1-S2
Respiratory: Clear
GI: Soft and Non Distended
Neurology: Awake
Skin: Warm
Labs/Micro/Reports
Lab Data
08/26/25 04:00
08/26/25 04:00
Laboratory Results
08/25/25
11:05
PT 15.6 H
INR 1.26
APTT 82.4 H
--- NOTE | 2025-08-26 10:50 | PTCARENOTE ---
Patient downgraded to imu level of care. VSS. Echo in progress. Tolerating chest tube clamping trial. Right upper chest dressing remains c/d/i.
--- NOTE | 2025-08-26 11:26 | CARDSERVDEF ---
Addendum entered by France Ross RN 08/26/25 11:35:
IV site- left arm accessory [id number] G PC flushed easily
Original Note:
Echocardiogram with Definity completed after protocol screening completed. Allergies verified.
Patent IV site: Left arm antecubital 22 G PC____
IV site flushed with 0.9% NaCl pre and post administration.
Diluted bolus method utilized to enhance visualization of ventricular ambriz.
Total volume given: __3__ mL
Patient tolerated all procedures well without complications.
[2025-08-26] MEDS: CYTOMEL 5 MICROGRAM PO (12:46)
[2025-08-26] MEDS: MIRALAX 17 GRAMS PO ×2 (12:46→20:08)
--- NOTE | 2025-08-26 13:52 | PN.CDI ---
CDI
- -
CDI:
Physician Documentation Request
Admit Date: 08/25/25 08:40
Dear Doctor/GROUP EXERCISE CLASS INSTRUCTOR,
Please review the following and provide your response in the progress notes.
Clinical Indicators:
Pt admitted with Spontaneous Pneumothorax
Documented per cardiology consult, ' She was tachypneic,..... and mild respiratory distress, anxious, normal S1 and S2, no murmurs, rubs or gallops, mildly elevated JVD, decreased breath sounds at bases... chronic HFrEF 35-40%, undergoing w/u for
AmyloidLVEDP of 18 mmHg...LVEDP not severely elevated at 18, she was given Lasix 40mg iv during procedure for BNP >7000....'
Please provide further specificity regarding the most likely acuity of CHF you are evaluating, treating or monitoring.
Acute on Chronic HFrEF
Chronic Systolic CHF only
Other ( please specify)
Use of terms such as suspected, likely, concern for, or probable (associated with a specific diagnosis that is being evaluated, monitored, or treated as if it exists) are acceptable and can be coded in the inpatient setting, when documented at the
time of discharge.
Thank you,
Ailyn Lennon RN
CDI Specialist
[facility]
Please use your independent medical judgment in providing your response.
--- NOTE | 2025-08-26 13:59 | PTCARENOTE ---
Chest tube removed by Mammalogist. Patient resting comfortably. VSS.
--- NOTE | 2025-08-26 14:07 | W.PN.UPDATE ---
Update Note
Progress Note Update
Patient reexamined later in the day, continues to tolerate clamp chest tube well. Follow-up x-ray completed and reviewed, no recurrent pneumothorax noted. Chest tube was unclamped and no air bubbles noted in the atrium. Updated patient regarding
X-ray findings and continued tolerance of clamp chest tube. Decision made to remove chest tube.
Under sterile conditions, dressing removed, area cleaned with Betadine. Suture removal kit was utilized, sutures removed, chest tube removed without difficulty. Occlusive dressing placed.
Patient continued to do well on follow-up monitoring.
Additional 35 minutes of critical care time spent.
--- NOTE | 2025-08-26 15:21 | W.PN.HOSP.TC ---
Today's Communication/Plan
-
Chest tube had been removed after successful clamping trial and follow-up imaging.
Monitor closely
PT assessment if required
Assessment / Plan
Assessment / Plan
IMPRESSION:
Right tension pneumothorax
Concern for acute coronary syndrome/STEMI ruled out
Elevated anion gap metabolic acidosis
Elevated pro CHF BNP
Conditions prior to admission
SLE with pleurisy
Alpha antitrypsin deficiency
Chronic CHF preserved EF
Emphysema
Hypothyroidism/Estephania thyroiditis
Chronic normocytic anemia
Essential hypertension
Breast carcinoma
Surgical history including appendectomy, right hemicolectomy, IGNACIO/BSO, right mastectomy
Severe protein calorie malnutrition with BMI of 16
PLAN:
Spontaneous right tension pneumothorax.
Admitted to intensive care unit.
Emergent right chest tube placed with no airleak and follow-up chest x-ray with complete resolution.
Complete chest tube with follow-up imaging. If remains with no airleak plan is to clamp it over the next 24 to 48 hours.
On 08/26 chest tube was reassessed with no airleak. Chest tube was removed after clamping trial and follow-up imaging. Monitor closely for recurrent pneumothorax
Would benefit from additional imaging with CT chest when reasonable.
Concern for acute coronary syndrome/STEMI
Admission ECG with ST elevation in lateral lead.
Initiated on IV heparin and Brilinta
Cardiac catheterization with nonobstructive CAD
Plan is to continue aspirin and atorvastatin.
Noted with elevated pro CHF BNP, although no evidence of volume overload.
Echocardiogram pending
Repeat EKG post chest tube placement pending
Chronic CHF reduced EF
Essential hypertension
Ongoing workup for cardiac amyloidosis
Preadmission regimen including Coreg, Entresto, spironolactone, torsemide.
Continue Coreg
Hold Entresto, spironolactone and torsemide postcontrast exposure monitoring hemodynamics and volume status closely.
Lupus with pleurisy
Currently not on any anti-inflammatory regimen
Reports receiving intra-articular injection with steroids.
Hypothyroidism on replacement.
Anticipated Discharge: 24 - 48 hours
Subjective/Interval History
-
Date of Service: August 26, 2025
Objective Data
-
Labs:
Laboratory Results
08/26/25
04:00
WBC 7.1
Hgb 9.6 L
Hct 30.9 L
Plt Count 253
Sodium 134 L
Potassium 4.6
Chloride 108 H
Carbon Dioxide 18 L
BUN 39 H
Creatinine 0.9
Glucose 102 H
Calcium 8.9
Vital Signs:
Vital Signs
Temp Pulse Resp BP Pulse Ox
97.8 F 85 16 109/75 100
08/26/25 12:00 08/26/25 13:00 08/26/25 13:00 08/26/25 12:01 08/26/25 13:00
I&O
08/25/25 08/26/25 08/27/25
06:59 06:59 06:59
Intake Total 480 / 480 240 / 240
Output Total 500 / 500
Balance -20 / -20 240 / 240
Physical Exam
-
General: Well Developed and No Apparent Distress
HEENT: Normocephalic, Atraumatic and Moist Mucous Membranes
Respiratory: Clear to Auscultation and Chest Tubes
Cardiac: Regular Rhythm and S1/S2; Negative Murmur, Rub or Gallop
GI: Soft, Nontender, Nondistended and Normal Bowel Sounds; Negative Organomegaly
Rectal: Deferred by Provider
Musculoskeletal: No Clubbing, No Cyanosis and No Edema
Skin: Negative Rash
Neuro: Awake, Alert, Oriented, AO x 3 and Nonfocal/Grossly Intact
--- NOTE | 2025-08-26 15:29 | PTCARENOTE ---
Patient ambulated to bathroom to void. Voided 400 cc's of barbara urine. OOB to chair. VSS. Denies SOB.
[2025-08-26] MEDS: LIPITOR 40 MG PO (18:13)
--- NOTE | 2025-08-26 20:00 | PTCARENOTE ---
Resumed care of pt laying in bed AAOx3 watching tv. Pt pleasant and conversant. HR in the 70's in NSR with BBB on the monitor. POX 95% on RA. Lungs dec @ bases. Occ. dry cough. Chest tube removed during daytime, dressing C/D/I. Laceration above
chest tube site dressing C/D/I. + bowel. Pt reports BMx2 today. Bowel regimen in place. Pt OOB to bathroom with assist x1 when needed. Right radial cath site ecchymotic open to air. Sacral foam in place. Knee high seq in place. Palpable peripheral
pulses present. Right upper ext restrict. Left AC int capped. Left forearm int capped. Pt reports pain at tolerable level at this time. Call ascencio in place. Will continue to monitor.
[2025-08-27] VITALS (7 sets, daily range): BP systolic 111–145; BP diastolic 58–82; BMI 15.1
[2025-08-27] MEDS: CYTOMEL 5 MICROGRAM PO ×2 (06:01→12:35)
[2025-08-27] MEDS: SYNTHROID 88 MCG PO (06:01)
--- NOTE | 2025-08-27 07:45 | PTCARENOTE ---
Assumed care. Patient received lying in bed awake, alert and oriented. See technical services consultant charted on worklist flowsheet. No c/o pain. However, feels mildly SOB. BBS audible, bilateral bases with fine crackles, right base and RML diminished. Sats 98%
on RA, no apparent distress. Pedal pulses diminished, no edema. S1S2 regular with positive murmur. SR on CM with BBB, PVCs. Right upper anterior chest dressing CDI, right flank dressing CDI. Skin pale warm and dry, scattered ecchymosis BUE and
upper chest. Bed in low and locked position, call ascencio within reach.
[2025-08-27] MEDS: SENOKOT 17.2 MG PO (07:57)
[2025-08-27] MEDS: COLACE 100 MG PO (07:57)
[2025-08-27] MEDS: COREG 3.125 MG PO (07:58)
[2025-08-27] MEDS: PREVACID 15 MG PO (07:59)
--- NOTE | 2025-08-27 09:59 | W.PN.CARDCBS ---
Today's Communication / Plan
-
Resume home Entresto this AM
Stable cardiac status for discharge
Impression / Plan
-
Primary care physician: Marie Ruby MD
Primary ship's engineer: Jorge Christian MD ([place])
Impression:
Shortness of breath
Right Pneumothorax on CXR
Lateral ST elevations on EKG, urgent cath today with non obstructive CAD
RBBB
Chronic HFrEF 35-40%, undergoing w/u for Amyloid
SLE
COPD/Emphysema
HTN
Hyperlipidemia
Mild AR/TR and mildly dilated Aortic ascending aorta
Lacunar CVA
Breast cancer post R mastectomy 2002
Ovarian cancer post IGNACIO, nilo oophorectomy
Estephania thyroiditis post L thyroid lobectomy
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
GERD/PUD
IBS-C
underweight BMI 16
06/09/2024 ECHO - LVEF 35-40%, moderate global HK, mild LA enlargement, Mild AR/TR, mildly dilated AAo 3.6cm
06/12/2024 NST - EF 44%, no ischemia, mild diffuse HK
Plan:
Presented to ER with worsening SOB/cough and scapular pain, EKG with lateral NATALEE, STEMI alert activated
CXR prior to arrival with PTX
Cath with non obstructive CAD, admitted to ICU for repeat CXR, noted with Right tension PTX
LVEDP not severely elevated at 18, she was given lasix 40mg iv during procedure for BNP >7000
Symptoms resolved with treatment of pneumothorax
Patient with chronic heart failure with reduced ejection fraction
Echo here with LVEF 25%
Coreg has been continued
Would add back Entresto now
And resume home cardiac meds at discharge
We will sign off, please recall as needed
Recommended close follow-up with her primary ship's engineer ([facility] - Dr. Christian) for ongoing workup of nonischemic cardiomyopathy�currently being worked up for cardiac amyloid from what she tells me
Discussed with auto radio mechanic
Progress Note - Commercial Solar Sales Consultant
Subjective
Date of Service: August 27, 2025
NAOE. Tells me chest discomfort and SOB has resolved.
Objective
Labs:
08/26/25 04:00
08/26/25 04:00
Labs
Hgb 9.6 g/dL (12.0-16.0) L 08/26/25 04:00
Hct 30.9 % (37.0-47.0) L 08/26/25 04:00
Plt Count 253 10^3/uL (130-400) 08/26/25 04:00
PT 15.6 Sec (11.4-14.6) H 08/25/25 11:05
INR 1.26 08/25/25 11:05
APTT 82.4 Sec (23.4-35.0) H 08/25/25 11:05
Sodium 134 mmol/L (135-145) L 08/26/25 04:00
Potassium 4.6 mmol/L (3.5-5.1) 08/26/25 04:00
BUN 39 mg/dl (7-17) H 08/26/25 04:00
Creatinine 0.9 mg/dL (0.6-1.0) 08/26/25 04:00
Glucose 102 mg/dl (70-99) H 08/26/25 04:00
Troponins
08/25/25 08/25/25 08/26/25
07:09 14:13 00:08
Troponin I 0.018 0.042 H* D 0.124 H*
08/26/25
04:00
Troponin I 0.113 H*
Vital Signs and I&O:
Vital Signs
Temp Pulse Resp BP Pulse Ox
98.4 F 82 16 113/82 97
08/27/25 03:08 08/27/25 07:58 08/27/25 05:00 08/27/25 07:58 08/27/25 05:00
Vital Signs
Temp Pulse Resp BP Pulse Ox
98.4 F 82 16 113/82 97
08/27/25 03:08 08/27/25 07:58 08/27/25 05:00 08/27/25 07:58 08/27/25 05:00
Intake & Output
08/25/25 08/26/25 08/27/25 08/28/25
06:59 06:59 06:59 06:59
Intake Total 480 / 480 720 / 720
Output Total 500 / 500 1950 / 1950
Balance -20 / -20 -1230 / -1230
Physical Exam
Physical Exam
Gen: NAD, AA
HEENT: NC/AT, sclera anicteric
Neck: No JVD
CV: RRR, NL s1/s2, no M/R/G
Lungs: CTA on RA
Ext: No LE edema
Skin: Warm, dry
Neuro: Non-focal
[2025-08-27] MEDS: ENTRESTO 24 MG/26 MG 1 TAB PO (10:10)
--- NOTE | 2025-08-27 11:30 | PTCARENOTE ---
Worked with PT at bedside, OOB to chair. Walked to Bathroom with SBA, gait steady. Voids without difficulty, loose liquid stool. Noon Miralax held. Back to chair.
[2025-08-27] MEDS: MIRALAX PO ×2 (11:44→12:16)
--- NOTE | 2025-08-27 12:05 | W.PN.PUL3 ---
Addendum entered and electronically signed by Kiki Ware MD 08/27/25 13:00:
Anterior chest dressing changed, sutures removed. No active bleeding noted.
Area cleaned with betadine. New dressing placed.
Stable for discharge from Pulmonary stand point.
Original Note:
Today's Communication / Plan
-
- PT/OT
- Outpatient follow-up with pulmonary clinic in 2 to 4 weeks time
- Patient counseled regarding signs and symptoms to watch for which may suggest recurrent pneumothorax
- Discharge planning per primary team
Assessment
-
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 Symptoms started about 7 to 8 hours prior to
presentation where she felt rather rapid onset of back pain with chest pressure and difficulty breathing. She tried to fall asleep and then woke up in the morning with worsening shortness of breath and presented to the emergency room. Initial EKG
was suggestive of ST elevation and patient was taken to [facility] Sander where no coronary artery disease was noted. Initial chest x-ray was concerning for possible pneumothorax however interpretation was limited by multiple lines, patient rotation as well
as ruptured breast implant noted on the right side. Post coronary angiogram, patient was transferred to ICU for concern of pneumothorax as underlying etiology for shortness of breath and chest pain. Commercial Engineer consultation was requested for
further input.
Patient was emergently evaluated in the ICU as soon as she arrived. A stat bedside [id number] ultrasound was performed which showed absence of lung sliding on the right hemithorax in the anterior and lateral region. Repeat chest x-ray was
performed which confirmed pneumothorax suggestive of tension physiology. A bedside chest tube was emergently placed with rapid improvement in patient's symptoms.
#1. Spontaneous tension pneumothorax, right side with respiratory distress
- Emergent bedside placement of chest tube (08/25) with resolution of pneumothorax
- 08/26, tolerated clamp trial well, chest tube removed
- 08/27, follow-up x-ray unchanged, no recurrence of pneumothorax noted.
- Reported prior history of COPD. CT scan reviewed from earlier this year, no bullous changes noted.
- Out patient follow up with [facility] pulmonary clinic.
#2. Chest pain with concern for ST elevation [place]
- Patient had evidence of ST elevation on EKG and was taken to [facility] emergently
- No evidence of coronary artery disease
- Suspect symptoms primarily related to tension pneumothorax, chest pain resolved post chest tube placement
- Resume aspirin at 81 mg daily.
#3. H/o COPD
- Reports obstructive airway disease related to lupus, no prior history of smoking, no PFTs available for review
- At baseline patient uses Anoro daily and as needed albuterol. Start Duoneb qid.
- Reported h/o Alpha 1 AT deficiency in the family, check level.
- Needs out patient follow up with PFTs and 6 min walk test. Will arrange follow up.
#4. H/o HFrEF
- Currently appears euvolemic, presentation not suggestive of heart failure exacerbation
- Cardiology service on case
Other medical diagnoses:
- History of SLE
- Hypertension, hyperlipidemia
- Hypothyroidism
- History of lacunar CVA
- History of breast and ovarian cancer
- History of ruptured breast implant on the right side
- GERD
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
Critical Care time 43 mins -- The patient is admitted for acute critical illness for the treatment of vital organ failure and/or prevention of further life-threatening conditions. Total care includes time spent in review of history, physical exam,
medications, hemodynamic/ventilator parameters, laboratory data, imaging and discussion with house staff, pharmacy, respiratory therapy, collection advisor, and nursing.
Data:
CXR 08/2025: Essentially stable large tension right pneumothorax, findings noted by the Office Cleaner in the ICU.
LHC 08/2025: 1. No obstructive coronary artery disease.
2. LVEDP of [address] Chest 04/2025: No acute findings in the chest. Stable chronic findings as detailed above.
Postoperative changes of right mastectomy with implant reconstruction. There is rupture of the implant which is new from prior examination in 2021.
Moderate coronary artery calcifications.
Subjective Data
-
Date of Service:
Date of Service: August 27, 2025
Subjective:
Patient comfortably lying in bed in no acute distress.
Review of Systems
Genitourinary: Other (No new symptoms reported.)
Objective Data
Data Reviewed
Vital Signs / I&O / Oxygen:
Vital Signs
Temp Pulse Resp BP Pulse Ox
98.4 F 80 16 125/64 97
08/27/25 03:08 08/27/25 10:10 08/27/25 05:00 08/27/25 10:10 08/27/25 05:00
Intake and Output
08/26/25 08/27/25 08/28/25
06:59 06:59 06:59
Intake Total 480 / 480 720 / 720
Output Total 500 / 500 1950 / 1950
Balance -20 / -20 -1230 / -1230
SaO2 97
Physical Exam
General: Comfortable
HEENT: Normocephalic
Cardiovascular: S1-S2
Respiratory: Clear and Non-Labored Respirations
GI: Soft and Non Distended
Neurology: Awake, Alert and Oriented
Skin: Warm
Labs/Micro/Reports
Lab Data
08/26/25 04:00
08/26/25 04:00
--- NOTE | 2025-08-27 12:07 | W.DCSUMMARY ---
Discharge Summary
Discharge Data
Date of Admission: 08/25/25
Date of Discharge: 08/27/25
-
Pending Results: No
Hospital Course
IMPRESSION:
Right tension pneumothorax
Concern for acute coronary syndrome/STEMI ruled out
Elevated anion gap metabolic acidosis
Elevated pro CHF BNP
Conditions prior to admission
SLE with pleurisy
Alpha antitrypsin deficiency
Chronic CHF preserved EF
Emphysema
Hypothyroidism/Estephania thyroiditis
Chronic normocytic anemia
Essential hypertension
Breast carcinoma
Surgical history including appendectomy, right hemicolectomy, IGNACIO/BSO, right mastectomy
Severe protein calorie malnutrition with BMI of 16
PLAN:
Spontaneous right tension pneumothorax.
Admitted to intensive care unit.
Emergent right chest tube placed with no airleak and follow-up chest x-ray with complete resolution.
Complete chest tube with follow-up imaging. If remains with no airleak plan is to clamp it over the next 24 to 48 hours.
On 08/26 chest tube was reassessed with no airleak. Chest tube was removed after clamping trial and follow-up imaging.
Concern for acute coronary syndrome/STEMI
Chronic CHF reduced EF. Ongoing workup for amyloid cardiomyopathy
Admission ECG with ST elevation in lateral lead.
Initiated on IV heparin and Brilinta
Cardiac catheterization with nonobstructive CAD
Plan is to continue aspirin and atorvastatin.
Noted with elevated pro CHF BNP, although no evidence of volume overload.
Repeat echocardiogram showed severely reduced EF at 25%
Discussed with cardiology.
Plan is to continue GDMT and follow-up with outpatient cardiology for additional workup including amyloid cardiomyopathy
Lupus with pleurisy
Currently not on any anti-inflammatory regimen
Reports receiving intra-articular injection with steroids.
Hypothyroidism on replacement.
Discharge Plan
-
Patient Disposition: Home (Routine Discharge)
Discharge Diagnosis/Procedures: IMPRESSION:
Right tension pneumothorax
Concern for acute coronary syndrome/STEMI ruled out
Elevated anion gap metabolic acidosis
Elevated pro CHF BNP
Conditions prior to admission
SLE with pleurisy
Alpha antitrypsin deficiency
Chronic CHF preserved EF
Emphysema
Hypothyroidism/Estephania thyroiditis
Chronic normocytic anemia
Essential hypertension
Breast carcinoma
Surgical history including appendectomy, right hemicolectomy, IGNACIO/BSO, right mastectomy
Severe protein calorie malnutrition with BMI of 16
Condition: Good
Diet: Low Cholesterol
Stand Alone Forms: DC Instructions- Cath/EP Lab
Referrals:
Kiki Ware MD [Active, Pulmonary Medicine] - in two to four weeks
Jorge Christian MD [Non-Admitting Privileges, Internal Medicine] - in two to four weeks
Marie Ruby MD [Family Provider, Internal Medicine]
Prescriptions:
Continued
aspirin 325 mg Tablet
325 mg PO DAILY
liothyronine 5 mcg Tablet
5 mcg PO BID@06,12
spironolactone 25 mg tablet
25 mg PO DAILY
carvedilol 3.125 mg tablet
3.125 mg PO BID
Claritin-D 24 Hour 10-240 mg Tablet Extended Release 24 Hr
1 tab PO DAILY
albuterol sulfate 90 mcg/actuation HFA aerosol inhaler
2 inh INHALATION Q4HPRN PRN (Reason: shortness of breath)
umeclidinium-vilanterol [Anoro Ellipta] 62.5-25 mcg/actuation blister with device
1 inh INHALATION DAILYPRN PRN (Reason: shortness of breath)
atorvastatin 40 mg tablet
40 mg PO DAILY
torsemide 20 mg tablet
20 mg PO DAILY
polyethylene glycol 3350 17 gram Powder In Packet
17 g PO BID@,20
oxycodone-acetaminophen 10-325 mg tablet
1 tab PO TIDPRN PRN (Reason: pain)
fluticasone propionate 50 mcg/actuation Upatoi,Suspension
2 spray INTRANASAL TID
esomeprazole magnesium 20 mg capsule,delayed release(DR/EC)
20 mg PO BID@08,16
potassium chloride [Klor-Con M10] 10 mEq tablet,ER particles/crystals
20 meq PO BID@08,20
potassium chloride [Klor-Con M10] 10 mEq tablet,ER particles/crystals
10 meq PO QNOON
sacubitril-valsartan [Entresto] 24-26 mg tablet
1 tab PO BID
levothyroxine 88 mcg Tablet
88 mcg PO DAILY@06
triamcinolone acetonide 40 mg/mL Suspension
40 mg INFILTRATION Q2M
carboxymethylcellulose sodium [Refresh Celluvisc] 1 % Dropperette,Gel
1 drp OPHTHALMIC (EYE) TID
Prolia 60 mg/mL Syringe
60 mg SC [id number]
digestive enzymes Tablet
4 tab PO DAILY
cyanocobalamin (vitamin B-12) 1,000 mcg Tablet
1,000 mcg PO DAILY
ascorbic acid (vitamin C) 500 mg Tablet
500 mg PO DAILY
pyridoxine (vitamin B6) 100 mg Tablet
100 mg PO DAILY
calcium citrate 200 mg (950 mg) Tablet
400 mg PO DAILY
cholecalciferol (vitamin D3) 50 mcg (2,000 unit) Tablet
50 mcg PO DAILY
biotin 1 mg Capsule
1 mg PO DAILY
PreserVision AREDS-2 250-90-40-1 mg Capsule
1 tab PO BID
Discharge Orders:
Discharge Patient (As Directed); Ordered 08/27/25
Ordered By: Riley Higuera
Discharge Date and Time
Print Language: SAMI
--- NOTE | 2025-08-27 12:55 | PTCARENOTE ---
Assisted Dr. Ware to remove sutures right upper anterior chest. Cleansed with betadine and DSD placed covered with tegaderm.
--- NOTE | 2025-08-27 12:59 | CM ---
F/U: Patient discharging today. Patient has chronic CAD/ COPD (?) so spoke to patient about Home Care, patient is interested, but want to see how it goes, she may not stay with it. Hospitalist put in order, [facility] was chosen, referral sent. IMM
completed. PLAN: Home w/ [facility].
--- NOTE | 2025-08-27 13:15 | PTCARENOTE ---
IV sites x 2 dc'd, catheters intact. Pressure held. Discharge instructions given verbally and handout, verbalized understanding. Assisted to dress in street clothes. Belongings gathered.
--- NOTE | 2025-08-27 13:39 | VNURNOTE ---
Addendum entered by Marie Julien RN 08/27/25 14:28:
Rec'ed confirmation from [facility] that they will accept pt and see for start of care on SAT. Called patient and left message informing her of new start of care date.
Referral in [facility] for [facility]
Original Note:
Home Health Liaison met with patient and spouse at bedside to discuss [facility] nurse/therapy, visits, schedule and homebound status. Patient is agreeable and understands that visits at home will be 2-3 x per week to assess and teach medical
management. Patient is aware that [facility] will contact them for start of care within a few days after discharge from . Provided contact number for [facility]. Confirmed with cardio Dr Gutiérrez that ok for VN to start on Saturday.
[facility] referral completed in [facility].
--- NOTE | 2025-08-27 13:55 | PTCARENOTE ---
Patient discharged via wheelchair accompanied by RN. Hussains with patient.
== END 2025-08-27 14:31 | disposition home health service (06) | DRG 199 ==
LOC: ICU 08:40
PROVIDERS: Nurse Practitioner Adult Health; Nurse Practitioner Family; Student in an Organized Health Care Education/Training Program; ADMITTING PHYSICIAN Hospitalist; ATTENDING PHYSICIAN Internal Medicine; CONSULT PHYSICIAN Internal Medicine; CONSULT PHYSICIAN Internal Medicine Interventional Cardiology; EMERGENCY PHYSICIAN Emergency Medicine; FAMILY PHYSICIAN Internal Medicine
PROC: B2011ZZ Plain Radiography of Multiple Coronary Arteries using Low Osmolar Contrast (ICD-10-PCS; 2025-08-25)
PROC: 4A023N7 Measurement of Cardiac Sampling and Pressure, Left Heart, Percutaneous Approach (ICD-10-PCS; 2025-08-25)
PROC: 0W9930Z Drainage of Right Pleural Cavity with Drainage Device, Percutaneous Approach (ICD-10-PCS; 2025-08-25)
DX: J93.0 Spontaneous tension pneumothorax (principal); E43 Unspecified severe protein-calorie malnutrition; I50.43 Acute on chronic combined systolic (congestive) and diastolic (congestive) heart failure; E87.20 Acidosis, unspecified; Z68.1 Body mass index [BMI] 19.9 or less, adult; T85.49XA Other mechanical complication of breast prosthesis and implant, initial encounter; R64 Cachexia; I42.9 Cardiomyopathy, unspecified; M32.9 Systemic lupus erythematosus, unspecified; J43.9 Emphysema, unspecified; E06.3 Autoimmune thyroiditis; D64.9 Anemia, unspecified; I11.0 Hypertensive heart disease with heart failure; Z90.11 Acquired absence of right breast and nipple; Z85.43 Personal history of malignant neoplasm of ovary; Z85.3 Personal history of malignant neoplasm of breast; I45.10 Unspecified right bundle-branch block; Z86.718 Personal history of other venous thrombosis and embolism; Z86.711 Personal history of pulmonary embolism; Z86.73 Personal history of transient ischemic attack (TIA), and cerebral infarction without residual deficits; K21.9 Gastro-esophageal reflux disease without esophagitis; K58.1 Irritable bowel syndrome with constipation; Z87.891 Personal history of nicotine dependence; E88.01 Alpha-1-antitrypsin deficiency; Y81.2 Prosthetic and other implants, materials and accessory general- and plastic-surgery devices associated with adverse incidents; E78.00 Pure hypercholesterolemia, unspecified; I73.00 Raynaud's syndrome without gangrene; R54 Age-related physical debility; Z79.82 Long term (current) use of aspirin; Z79.890 Hormone replacement therapy; Z86.16 Personal history of COVID-19; Z87.81 Personal history of (healed) traumatic fracture; Z88.0 Allergy status to penicillin; Z88.2 Allergy status to sulfonamides; Z90.49 Acquired absence of other specified parts of digestive tract; Z90.710 Acquired absence of both cervix and uterus; Z79.899 Other long term (current) drug therapy
CPT/HCPCS: 71045; 80048; 80053; 80061; 82103; 82805; 82962; 83605; 83880; 84484; 85025; 85347; 85610; 85730; 93005; 93306; 93458; 99152; 99285; C1769; Q9957; Q9967